=== PATIENT | male | born 1985 | race Caucasian/White ===

== ENCOUNTER 2017-09-30 16:03 | Emergency (ER) | payer BC ==
--- NOTE | 2017-09-30 16:50 | ED Physician Chart ---
ED Chief Complaint/HPI - Patient Information Date Seen:: 09/30/17 Time Seen:: 16:11 Chief Complaint:: R knee pain since last evening. History of Present Illness:: Pt came in by private auto because of onset of R knee pain since about 8 pm yesterday. No known injury except pt has had prolonged walking and wt bearing activities. Pt remains ambulatory except with increased pain. No weakness or numbness. No fever. Pt had Motrin just before coming to the ER. His pain has much improved. Pt states that he has chronic R knee pain related to rigorous wt bearing activities during his service in the past. He has been evaluated and managed for his R knee pain at the [facility] in [place]. Allergies:: Allergies Allergy/AdvReac Type Severity Reaction Status Date / Time quetiapine [From Seroquel] Allergy Verified 09/30/17 16:39 Vitals:: Vital Signs - 8 hr 09/30/17 16:33 Temp 98 F HR 96 RR 16 BP 130/85 O2 Sat % 99 Historian:: Patient Family MD/PCP:: Dr. Bella at [facility]. LMP:: N/A Review:: Nurse's Note Reviewed ED Review of Systems - Review of Systems General/Constitutional: No fever, No weakness, No edema Skin: No rash, No bruising Head: No headache, No light-headedness Eyes: No loss of vision, No pain ENT: No earache, No sore throat Neck: No neck pain, No stiffness Cardio Vascular: No chest pain, No palpitations, No edema Pulmonary: No SOB, No cough, No wheezing GI: No nausea, No vomiting, No pain G/U: No dysuria, No frequency, No hematuria Musculoskeletal: Bone or joint pain (R knee), No back pain Psychiatric: Prior psych history, No depression, No anxiety, No suicidal ideation, No homicidal ideation, No auditory hallucination, No visual hallucination (with PTSD and depression) Hematopoietic: No bruising, No lymphadenopathy Neurological: No syncope, No focal symptoms, No weakness, No headache, No seizure, No dizziness, No confusion ED Past Medical History - Past Medical History Past Medical History: Other (Chronic R knee pain related to DJD.) Family History: Heart disease (parents), Diabetes Melitus (father), HTN (parents ), DVT/PE (mother) Social History: Smoker (occasional. Pt has been informed about health risks associated with chronic tobacco use and has been advised to quit. Pt has been encouraged to enroll in a smoking cessation program. Pt acknowledges understanding.), Alcohol (occasional), No Drug Use, , Employed, Other ( lives with his .) Employment:: clinical coordinator. Surgical History: other (L ankle surgery about 10 y/a.) Psychiatricy History: Depression, Other (PTSD) Family Medical History - Family Member Mother Hx Family Hypertension: Yes ED Physical Exam - Physical Examination General/Constitutional: Awake, Well-developed, well-nourished, Alert, No distress, Non-toxic appearing, Ambulatory Other Gen/Cons comments:: Breathes comfortably, speaks clearly, and interacts normally. Head: Atraumatic Eyes: Lids, conjuctiva normal, PERRL, EOMI Skin: Nl inspection, No rash, No ecchymosis, Well hydrated, No lymphadenopathy ENMT: External ears, nose nl, Nasal exam nl, Lips, teeth, gums nl, Oropharynx nl Neck: Nontender, Full ROM w/o pain, No nuchal rigidity, No mass, No stridor Respiratory: Nl effort/Exclusion, Clear to Auscultation, No Wheeze/Rhonchi/Rales Cardio Vascular: RRR, No murmur, gallop, rubs Other Extremities comments:: R knee: Mild tenderness at anterior and lateral aspect. No gross deformity, crepitus, erythema, swelling, ecchymosis, or open wound. FROM. Negative Drawer' s sign. Stable MCL and LCL. No detectable motor/sensory/vascular deficit. Neuro/Psych: Alert/oriented (oriented x 3), Judgement/insight normal, Mood normal, No focal deficits ED Septic Shock - . Is Septic Shock (SBP<90, OR Lactate>4 mmol\L) present?: No - <6hrs of presentation: Vital Signs: Vital Signs - 8 hr 09/30/17 16:33 Temp 98 F HR 96 RR 16 BP 130/85 O2 Sat % 99 ED Reassessment (Disposition) - Reassessment Reassessment:: 1758 Pt feels better. Pt requests to go home now. He prefers not to have any imaging study done here and will follow with his PCP Dr. Bella tomorrow at the [facility]. Aftercare instructions have been given. Reassessment Condition:: Improved - Diagnosis Diagnosis:: Chronic R knee pain c/w DJD. Stable and improved. - Aftercare/Follow up Instructions Aftercare/Follow-Up Instructions:: Refer to Discharge Instructions Notes:: Avoid excessive wt bearing activities. May take Tylenol 500 mg tab one tab po q6h prn pain. F/U with PCP Dr. Bella at [facility] in [place] in one day as planned. Return to ER immediately if condition worsens or if any further questions/problems. Medication Prescribed:: None - Patient Disposition Discharge/Transfer:: Home Time:: 18:00 Condition at Disposition:: Stable, Improved ED Discharge Plan - Patient Disposition Admit/Discharge/Transfer: PT DISCHARGED HOME Condition at Disposition: Stable Instructions: Knee - Cartilage (Meniscus) Injury Forms: Work Release Form
== END 2017-09-30 18:20 | disposition home or self-care (01) ==
LOC: EDBD 16:03 → ER 16:03
DX: G89.29 Other chronic pain (principal); M25.561 Pain in right knee; F17.200 Nicotine dependence, unspecified, uncomplicated
CPT/HCPCS: Z7610